=== PATIENT | male | born 1945 | race Caucasian/White ===

== ENCOUNTER 2016-10-29 08:50 | Inpatient (IN) | payer BC, OTHER ==
[~2016-10-29] VITALS: Ht 175.3 cm; Wt 111.6 kg
[~2016-10-29 08:50] MED LIST: ACTIVASE50 MG IV; ALLOPURINOL 10100 M1 PO; AMARYL4 MG PO; ARTIFICIAL TEAR15 M1 OPHTHALMIC; ASA81BEC PO; ASPIR 8181 MG PO; ASPIRIN EC325 M1 PO; ASPIRIN81 M2 PO; ATIVAN0.5 MG PO; BYSTOLIC 5 MG5 MG PO; CARVEDILOL12.5 MG PO; CEPHALEXIN 500500 M1 PO; CLOPIDOGREL75 MG PO; COUMADIN 2 MG TA2 M1 PO; COUMADIN 5 MG TA5 M1 PO; DICLOFENAC SOD50 M1 PO; DOCUSATE SODIU100 MG PO; DOXYCYCLINE 10100 M1 PO; DOXYCYCLINE 10100 MG PO; ENOXAPARIN120 MG/0.8 SUBQ; FENTANYL 0.50 MCG/ML IV PUSH; FENTANYL PA25 MCG/HR TRANSDERM; FLONASE 0.05%50 MCG NASAL; FLONASE INH; GABAPENTIN 100100 MG PO; GLUCOPHAGE1000 MG PO; GLUCOSAMINE &1 EACH PO; HYDROCODON-ACE1 EAC5 PO; INVOKANA300 MG PO; LISINOPRIL20 MG PO; METFORMIN HCL500 MG PO; MOBIC15 MG PO; MUPIROCIN22 GM TOP; NORVASC10 MG PO; NOVOLOG100 UNIT/1 SUBQ; ONDANSETRON HCL4 M2 IV; SYNTHROID PO; SYNTHROID100 MCG PO; TAMSULOSIN HCL0.4 M1 PO; TUMS PO; TYLENOL325 MG PO; UNASYN 3 GM VIAL3 G1 IV; ZOCOR 20 MG TAB20 M1 PO
[2016-10-29 08:51] VITALS: BP 134/63
[2016-10-29 09:49] LABS: HEMOGLOBIN 13.2 gm/dL (14.0-18.0)
[2016-10-29 09:50] LABS: HEMATOCRIT 39.1 % (42.0-52.0); MCH 28.8 pg (26.0-34.0); MCHC 33.9 g/dL (28.0-37.0); RDW 16.6 % (10.5-14.5); WBC 8.1 thou/uL (4.0-11.0)
[2016-10-29 09:52] LABS: MANUAL DIFF YES
[2016-10-29 10:05] LABS: ANION GAP 11 mmol/L (7-16); BUN 23 mg/dL (7-18); CALCIUM 8.4 mg/dL (8.5-10.1); CHLORIDE 100 mmol/L (98-107); CO2 23 mmol/L (21-32); CREATININE 1.4 mg/dL (0.7-1.3); GLUCOSE 263 mg/dL (74-106); POTASSIUM 4.4 mmol/L (3.5-5.1); SODIUM 134 mmol/L (136-145)
[2016-10-29 10:11] LABS: ALBUMIN 3.6 g/dL (3.4-5.0); ALKALINE PHOSPHATASE 46 U/L (46-116); MAGNESIUM 1.3 mg/dL (1.8-2.4); SGOT 18 U/L (15-37); SGPT 18 U/L (30-65); TOTAL BILIRUBIN 1.2 mg/dL (<0.1-1.0); TOTAL PROTEIN 6.7 g/dL (6.4-8.2); TROPONIN-I < 0.04 ng/mL (<0.04-0.07)
[2016-10-29 10:17] LABS: ABSOLUTE NEUTROPHILS 7.9 thou/uL (1.4-8.2); ANISOCYTOSIS 1+; TOTAL CELL COUNT 100
[2016-10-29] MEDS ORDERED: MOBIC15 MG PO (10:32)
[2016-10-29] MEDS ORDERED: TRAMADOL 50 MG50 MG PO (10:33)
[2016-10-29] MEDS ORDERED: LASIX 20 MG TAB20 MG PO (10:33)
[2016-10-29 11:24] VITALS: BP 128/73
[2016-10-29 11:40] VITALS: BP 117/70
[2016-10-29] MEDS ORDERED: TRULICITY1.5 MG/0.5 SQ (11:55)
[2016-10-29 12:08] LABS: PLATELET COUNT 105 thou/uL (150-400)
[2016-10-29 16:01] VITALS: BP 120/62
[2016-10-29 20:00] VITALS: BP 142/82
[2016-10-30 00:20] VITALS: BP 129/75
[2016-10-30 04:53] VITALS: BP 123/64
[2016-10-30 06:18] LABS: HEMATOCRIT 36.6 % (42.0-52.0); HEMOGLOBIN 12.5 gm/dL (14.0-18.0); MCH 28.7 pg (26.0-34.0); MCHC 34.2 g/dL (28.0-37.0); MCV 83.8 fL (80.0-100.0); RBC 4.37 mil/uL (4.50-6.00); RDW 16.8 % (10.5-14.5); WBC 8.5 thou/uL (4.0-11.0)
[2016-10-30 06:41] LABS: ALBUMIN 2.9 g/dL (3.4-5.0); CALCIUM 8.4 mg/dL (8.5-10.1); CREATININE 1.2 mg/dL (0.7-1.3); POTASSIUM 4.1 mmol/L (3.5-5.1); TOTAL PROTEIN 6.5 g/dL (6.4-8.2)
[2016-10-30 07:24] VITALS: BP 125/60
[2016-10-30 15:13] VITALS: BP 140/66
[2016-10-30 21:00] VITALS: BP 133/67
[2016-10-31 04:56] LABS: HEMATOCRIT 36.5 % (42.0-52.0); HEMOGLOBIN 12.3 gm/dL (14.0-18.0); MCH 28.4 pg (26.0-34.0); MCHC 33.7 g/dL (28.0-37.0); MCV 84.2 fL (80.0-100.0); RBC 4.33 mil/uL (4.50-6.00); WBC 7.2 thou/uL (4.0-11.0)
[2016-10-31 05:00] LABS: CALCIUM 8.5 mg/dL (8.5-10.1); CREATININE 1.1 mg/dL (0.7-1.3); POTASSIUM 4.1 mmol/L (3.5-5.1)
[2016-10-31 07:22] VITALS: BP 133/81
[2016-10-31 15:13] VITALS: BP 137/67
[2016-10-31 20:00] VITALS: BP 141/75
[2016-11-01 04:00] VITALS: BP 141/81
[2016-11-01 04:47] LABS: CALCIUM 8.7 mg/dL (8.5-10.1); POTASSIUM 3.9 mmol/L (3.5-5.1)
[2016-11-01 04:53] LABS: HEMATOCRIT 37.2 % (42.0-52.0); HEMOGLOBIN 12.7 gm/dL (14.0-18.0); MCH 28.4 pg (26.0-34.0); MCV 83.4 fL (80.0-100.0); RBC 4.46 mil/uL (4.50-6.00); RDW 16.8 % (10.5-14.5); WBC 6.1 thou/uL (4.0-11.0)
[2016-11-01 07:42] VITALS: BP 138/70
[2016-11-01 16:39] VITALS: BP 137/68
[2016-11-01 19:30] VITALS: BP 137/75
[2016-11-02 03:13] VITALS: BP 125/62
[2016-11-02 07:15] VITALS: BP 131/68
[2016-11-02 14:18] VITALS: BP 131/68
[2016-11-02 15:50] VITALS: BP 131/68
[2016-11-02] MEDS ORDERED: CEFTRIAXONE40 MG/M1 IJ (16:23)
== END 2016-11-02 18:18 | disposition home health service (06) | DRG 603 ==
LOC: ER 08:50 → 4E 10:09 → EROBS 10:09 → 4E 11:27
PROVIDERS: Emergency Medicine; Hospitalist; Nurse Practitioner
PROC: B548ZZA Ultrasonography of Superior Vena Cava, Guidance (ICD-10-PCS; principal; 2016-11-02)
PROC: 02HV33Z Insertion of Infusion Device into Superior Vena Cava, Percutaneous Approach (ICD-10-PCS; principal; 2016-11-02)
DX: L03.115 Cellulitis of right lower limb (principal); N17.9 Acute kidney failure, unspecified; E11.621 Type 2 diabetes mellitus with foot ulcer; I12.9 Hypertensive chronic kidney disease with stage 1 through stage 4 chronic kidney disease, or unspecified chronic kidney disease; E11.22 Type 2 diabetes mellitus with diabetic chronic kidney disease; N18.9 Chronic kidney disease, unspecified; I73.9 Peripheral vascular disease, unspecified; E11.65 Type 2 diabetes mellitus with hyperglycemia; E83.42 Hypomagnesemia; E78.5 Hyperlipidemia, unspecified; I25.10 Atherosclerotic heart disease of native coronary artery without angina pectoris; E03.9 Hypothyroidism, unspecified; E66.9 Obesity, unspecified; K21.9 Gastro-esophageal reflux disease without esophagitis; M54.9 Dorsalgia, unspecified; G89.29 Other chronic pain; Z96.652 Presence of left artificial knee joint; Z79.4 Long term (current) use of insulin; Z79.899 Other long term (current) drug therapy; Z88.6 Allergy status to analgesic agent; Z95.5 Presence of coronary angioplasty implant and graft; Z83.3 Family history of diabetes mellitus; Z82.49 Family history of ischemic heart disease and other diseases of the circulatory system; Z89.421 Acquired absence of other right toe(s); Z68.36 Body mass index [BMI] 36.0-36.9, adult; Z90.49 Acquired absence of other specified parts of digestive tract; Z87.442 Personal history of urinary calculi
CPT/HCPCS: 10783; 27001

== ENCOUNTER 2017-07-05 21:44 | Emergency (ER) | payer BC, OTHER ==
[~2017-07-05] VITALS: Ht 175.3 cm; Wt 106.6 kg
[~2017-07-05 21:44] MED LIST changes: +CEFTRIAXONE40 MG/M1 IJ; +LASIX 20 MG TAB20 MG PO; +TRAMADOL 50 MG50 MG PO; +TRULICITY1.5 MG/0.5 SQ
[2017-07-05] MEDS ORDERED: CLEOCIN HCL150 MG PO (22:30)
== END 2017-07-05 22:46 | disposition home or self-care (01) ==
LOC: ER 21:44
DX: L03.115 Cellulitis of right lower limb (principal); I10 Essential (primary) hypertension; G47.30 Sleep apnea, unspecified; E03.9 Hypothyroidism, unspecified; E78.00 Pure hypercholesterolemia, unspecified; I73.9 Peripheral vascular disease, unspecified; E11.621 Type 2 diabetes mellitus with foot ulcer; Z90.49 Acquired absence of other specified parts of digestive tract; Z95.5 Presence of coronary angioplasty implant and graft; Z87.442 Personal history of urinary calculi; Z88.6 Allergy status to analgesic agent

== ENCOUNTER 2017-12-22 08:43 | Day surgery (SDC) | payer BC, OTHER ==
[~2017-12-22] VITALS: Ht 172.7 cm; Wt 108.0 kg
--- NOTE | ~2017-12-22 | O ---
[facility] [place] [address] OPERATIVE REPORT Name: DEBBIE BENNETT Terrell SALAZAR [id number] Admission: 12/22/17 Attend Phys: Juan Carrillo MD Discharge: 12/22/17 Date of : 43 Report #: [id number] THIS REPORT FOR: //name// CC: Juan Kaur DO PREOPERATIVE DIAGNOSIS: Right renal calculi. POSTOPERATIVE DIAGNOSIS: Right renal calculi. PROCEDURE: Cystoscopy, right ureteroscopy with holmium laser ablation of the right renal calculi with placement of indwelling right ureteral stent. SURGEON: Juan Carrillo M.D. ANESTHESIA: General. INDICATIONS: The patient is a very pleasant 72-year-old gentleman who recently presented with flank pain and renal insufficiency. His stent was placed to unblock his kidney. He was brought back to the operating room for more definitive management. Risks, benefits and complications including the risk of multiple treatments were discussed. Risk of sepsis and bleeding were discussed. He understands complications could occur, which may not have been foreseen or discussed. He is anxious to proceed as outlined. DESCRIPTION OF PROCEDURE: After obtaining informed consent, he was brought to the operating room, where general anesthetic was administered. He was prepped and draped in lithotomy position by the operating personnel under anesthesia supervision. IV antibiotics were administered. Preliminary fluoroscopic images showed the stent to be in its proper position on the right side. There were two subtle opacifications identified on the preliminary films adjacent to the proximal end of the stent. A 21-Bengali ACMI cystoscope was introduced under direct vision. The anterior urethra was normal. The prostatic urethra was short and nonobstructive. The trigone and ureters were normal in configuration and location. The stent was seen emanating from the right ureteral orifice. I placed a Glidewire alongside the stent into the right renal pelvis. I grasped the stent and removed it. I then placed a second wire and followed by 04/08, 35 cm access sheath. I then placed the digital ureteroscope in the right renal pelvis. There were three large stones in the right renal pelvis. I ablated all these with the 272 micron holmium laser fiber. Visibility became somewhat compromised with all three stones burden. At this point, I thought it prudent to complete the procedure. I placed a stent with the idea of coming back for a second look after giving the smaller fragments a chance to pass. I then, therefore, removed the ureteroscope and backloaded the cystoscope and placed a 6-Bengali x 26 cm Contour stent with proximal curls overlying the kidney. The distal curl was in the bladder. Position was confirmed fluoroscopically with [address] [id number] OPERATIVE REPORT Name: DEBBIE BENNETT Room #: DEP [facility] [place] M.R.#: [id number] Admission: 12/22/17 Attend Phys: Juan Carrillo MD Discharge: 12/22/17 Date of : 43 Report #: [id number] hard copy. He was then transferred to the recovery room, where he arrived in stable condition. By: [id number] Juan Carrillo MD /nt
[2017-12-22 08:39] VITALS: BP 147/80
[~2017-12-22 08:43] MED LIST changes: +CLEOCIN HCL150 MG PO
[2017-12-22 10:40] VITALS: BP 147/80
== END 2017-12-22 11:36 | disposition home or self-care (01) ==
LOC: EDSTATUS 08:43 → OR 08:43 → TBA 08:43 → OR 11:36
DX: N20.0 Calculus of kidney (principal); E11.621 Type 2 diabetes mellitus with foot ulcer; I73.9 Peripheral vascular disease, unspecified; N40.0 Benign prostatic hyperplasia without lower urinary tract symptoms; Z88.8 Allergy status to other drugs, medicaments and biological substances; Z79.899 Other long term (current) drug therapy; Z79.82 Long term (current) use of aspirin; Z98.890 Other specified postprocedural states; Z82.49 Family history of ischemic heart disease and other diseases of the circulatory system; Z83.3 Family history of diabetes mellitus
CPT/HCPCS: 50010; 50101; 50164; 51620; 51767; 53331; 56815; 62110; 62900; 70005

== ENCOUNTER → 2019-11-27 | Outpatient (CLI) | payer BC, OTHER | LOC: SJCVCIMAG 08:30 | PROVIDERS: ATTEND Internal Medicine | DX: I08.0 Rheumatic disorders of both mitral and aortic valves (principal); I11.9 Hypertensive heart disease without heart failure; I45.10 Unspecified right bundle-branch block; I44.0 Atrioventricular block, first degree; I25.10 Atherosclerotic heart disease of native coronary artery without angina pectoris; E78.5 Hyperlipidemia, unspecified; E11.9 Type 2 diabetes mellitus without complications; Z79.899 Other long term (current) drug therapy ==

== ENCOUNTER → 2021-03-05 | Outpatient (CLI) | payer BC, OTHER | LOC: SJCVCIMAG | PROVIDERS: ATTEND Internal Medicine | DX: I08.0 Rheumatic disorders of both mitral and aortic valves (principal); R94.31 Abnormal electrocardiogram [ECG] [EKG]; I65.23 Occlusion and stenosis of bilateral carotid arteries; I45.2 Bifascicular block; I25.10 Atherosclerotic heart disease of native coronary artery without angina pectoris; I35.0 Nonrheumatic aortic (valve) stenosis; I10 Essential (primary) hypertension; I73.9 Peripheral vascular disease, unspecified; E78.5 Hyperlipidemia, unspecified; I48.92 Unspecified atrial flutter; I71.2 Thoracic aortic aneurysm, without rupture; G47.33 Obstructive sleep apnea (adult) (pediatric); E11.9 Type 2 diabetes mellitus without complications; K21.9 Gastro-esophageal reflux disease without esophagitis; Z88.8 Allergy status to other drugs, medicaments and biological substances; Z79.899 Other long term (current) drug therapy; Z79.82 Long term (current) use of aspirin; Z95.1 Presence of aortocoronary bypass graft ==